=== PATIENT | female | born 1960 | race Caucasian/White ===

== ENCOUNTER 2017-09-28 11:39 | Emergency (ER) | payer OTHER ==
[~2017-09-28] VITALS: Ht 175.3 cm; Wt 121.8 kg
[~2017-09-28 11:39] MED LIST: BENICAR HCT 201 EACH PO; BENICAR20 MG PO; COUMADIN2.5 MG PO; Ecotrin PO; HYDRODIURIL,O12.5 M2 PO; IRBESARTAN-HCT1 EACH PO; IRON325 M1 PO; LUMIGAN 0.50 DROP/22 RIGHT EYE; OMEPRAZOLE40 M1 PO; PAROXETINE HCL20 MG PO; PAXIL10 MG PO; PERCOCET 5/31 TABLET PO; TRAMADOL HCL50 MG PO; VISTARIL25 MG PO; VITAMIN D31000 UNIT PO
[2017-09-28] MEDS ORDERED: FLEXERIL10 MG PO (13:12)
[2017-09-28 13:26] VITALS: BP 126/99
== END 2017-09-28 13:27 | disposition home or self-care (01) ==
LOC: EME 11:39
DX: M54.9 Dorsalgia, unspecified (principal); I10 Essential (primary) hypertension
CPT/HCPCS: 99281; 99283; J1100

== ENCOUNTER 2017-10-08 23:29 | Emergency (ER) | payer OTHER ==
[~2017-10-08] VITALS: Ht 175.3 cm; Wt 121.2 kg
[~2017-10-08 23:29] MED LIST changes: +FLEXERIL10 MG PO
[2017-10-09 00:35] LABS: HEMATOCRIT 41.3 % (36.0-46.0); HEMOGLOBIN 12.9 G/DL (11.9-15.5); MCHC 31.2 G/DL (30.0-36.0); MCV 83.1 FL (83-99); PLATELET COUNT 248 K/uL (156-360); RBC DIS.WIDTH-CV 14.4 % (11.8-14.6); RED BLOOD COUNT 4.97 M/uL (3.80-5.20); WHITE BLOOD COUNT 5.6 K/uL (4.1-10.2)
[2017-10-09 00:58] LABS: CHLORIDE 106 mEq/L (99-109); POTASSIUM 4.2 mEq/L (3.7-5.4); SODIUM 138 mEq/L (136-147)
[2017-10-09 00:59] LABS: GLUCOSE 112 mg/dL (70-99)
[2017-10-09 01:03] LABS: CREATININE 0.8 mg/dL (0.6-1.3); GFR ESTIMATE (CALCULATED) > 59 mL/min/
[2017-10-09 01:04] LABS: UREA NITROGEN (BUN) 14 mg/dL (9-23)
[2017-10-09 01:09] LABS: TROP-I INTERPRETATION NEGATIVE; TROPONIN-I < 0.01 ng/mL (0.0-0.30)
[2017-10-09 06:18] LABS: TROP-I INTERPRETATION NEGATIVE; TROPONIN-I < 0.01 ng/mL (0.0-0.30)
[2017-10-09] MEDS ORDERED: PERCOCET 5/31 TABLET PO (11:01)
[2017-10-09 11:31] VITALS: BP 158/91
[2017-10-10] MEDS ORDERED: MAGNESIUM250 MG PO (08:13)
== END 2017-10-09 11:33 | disposition home or self-care (01) ==
LOC: EME 23:29
DX: R07.89 Other chest pain (principal); M50.223 Other cervical disc displacement at C6-C7 level; F41.9 Anxiety disorder, unspecified; Z98.84 Bariatric surgery status
CPT/HCPCS: 71046; 71275; 72125; 72141; 80048; 84484; 85027; 93005; 99281; 99284; J2270; J7030

== ENCOUNTER 2017-10-13 21:06 | Inpatient (IN) | payer OTHER ==
[~2017-10-13] VITALS: Ht 175.3 cm; Wt 117.9 kg
[~2017-10-13 21:06] MED LIST changes: +MAGNESIUM250 MG PO
[2017-10-14 08:03] VITALS: BP 196/100
[2017-10-14 14:58] VITALS: BP 166/81
[2017-10-14 18:14] VITALS: BP 155/80
[2017-10-14 20:33] VITALS: BP 146/93
[2017-10-15 00:17] VITALS: BP 140/72
[2017-10-15 04:00] VITALS: BP 137/72
[2017-10-15 06:19] LABS: HEMOGLOBIN 9.5 G/DL (11.9-15.5); MCV 83.1 FL (83-99)
[2017-10-15 06:44] LABS: CHLORIDE 103 MEQ/L (99-109); CREATININE 0.6 MG/DL (0.6-1.3); GFR ESTIMATE (CALCULATED) > 59 mL/min/; GLUCOSE 111 mg/dL (70-99); SODIUM 137 MEQ/L (136-147); UREA NITROGEN (BUN) 10 mg/dL (9-23)
[2017-10-15 08:23] VITALS: BP 118/60
[2017-10-15 12:14] VITALS: BP 116/63
[2017-10-15 15:38] VITALS: BP 128/66
[2017-10-15] MEDS ORDERED: ENDOCET 5-3251 EACH PO (16:27)
[2017-10-15] MEDS ORDERED: ELIQUIS2.5 MG PO (16:27)
[2017-10-15 20:12] VITALS: BP 119/66
[2017-10-16 00:25] VITALS: BP 141/65
[2017-10-16 04:00] VITALS: BP 124/65
[2017-10-16 06:21] LABS: HEMATOCRIT 29.8 % (36.0-46.0); HEMOGLOBIN 9.2 G/DL (11.9-15.5); MCV 83.5 FL (83-99)
[2017-10-16 08:00] VITALS: BP 140/70
[2017-10-16 12:00] VITALS: BP 139/73
== END 2017-10-16 14:50 | DRG 470 ==
LOC: 2SOUTH → ENRESERV 21:06 → 3WEST 10-14 07:06 → 2SOUTH 10-14 07:06 → 3WEST 10-14 14:35
PROVIDERS: Orthopaedic Surgery
PROC: 0SRD0J9 Replacement of Left Knee Joint with Synthetic Substitute, Cemented, Open Approach (ICD-10-PCS; principal; 2017-10-14)
DX: M17.12 Unilateral primary osteoarthritis, left knee (principal); I10 Essential (primary) hypertension; D68.51 Activated protein C resistance; K21.9 Gastro-esophageal reflux disease without esophagitis; H40.9 Unspecified glaucoma; G47.33 Obstructive sleep apnea (adult) (pediatric); Z68.38 Body mass index [BMI] 38.0-38.9, adult; Z96.651 Presence of right artificial knee joint; Z90.710 Acquired absence of both cervix and uterus; Z86.718 Personal history of other venous thrombosis and embolism; Z83.511 Family history of glaucoma; Z82.49 Family history of ischemic heart disease and other diseases of the circulatory system; Z82.3 Family history of stroke
CPT/HCPCS: 36415; 80048; 85014; 85018; 86850; 86900; 86901; C1713; J0690; J1885; J2250; J3010; J7050; J7120